=== PATIENT | female | born 1970 | race Caucasian/White ===

== ENCOUNTER 2023-09-11 16:38 | Outpatient (CLI) | payer BC | END 2023-09-11 16:39 | disposition home or self-care (01) | LOC: RAD 16:38 | PROVIDERS: ATTEND Family Medicine | DX: S82.821D Torus fracture of lower end of right fibula, subsequent encounter for fracture with routine healing (principal); M79.671 Pain in right foot ==

== ENCOUNTER 2024-07-18 13:15 | Outpatient (CLI) | payer BC | END 2024-07-18 13:16 | disposition home or self-care (01) | LOC: BICMRI 13:15 | PROVIDERS: ATTEND Orthopaedic Surgery | DX: M47.22 Other spondylosis with radiculopathy, cervical region (principal); M47.813 Spondylosis without myelopathy or radiculopathy, cervicothoracic region | CPT/HCPCS: 72141 ==